=== PATIENT | female | born 1980 | race Caucasian/White ===

== ENCOUNTER 2024-08-10 12:12 | Emergency (ER) | payer OTHER ==
[~2024-08-10 12:12] MED LIST: Iopamidol 370 76% 100 ML VIAL ONE
[2024-08-10 13:34] LABS: #Basophils 0.03 10x3/uL (0.0-0.2); #Monocytes 0.44 10x3/uL (0.0-1.1); #Neutrophils 4.53 10x3/uL (1.5-8.4); %Basophils 0.3 % (0.0-2.0); %Eosinophils 2.3 % (0.0-6.0); %Lymphocytes 39.5 % (18.0-47.0); %Monocytes 5.1 % (0.0-10.0); %Neutrophils 52.7 % (40.0-75.0); Hematocrit 39.2 % (34.9-44.5); Hemoglobin 13.2 g/dL (12.0-15.5); Mean Corpuscular HGB CONC 33.7 g/dL (32.0-36.0); Mean Corpuscular Hemoglobin 31.1 pg (27.0-33.0); Mean Corpuscular Volume 92.2 fL (81.6-98.3); Platelet Count 238 10x3/uL (150-450); RBC Distribution Width 13.2 % (11.5-14.5); Red Blood Cell (RBC) Count 4.25 10x6/uL (3.90-5.03); White Blood Cell (WBC) Count 8.61 10x3/uL (3.5-10.5)
[2024-08-10 13:47] LABS: PTT 22.4 sec (22.0-33.0); Prothrombin Time 10.7 sec (9.5-12.1)
[2024-08-10 13:51] LABS: ALT (SGPT) 37 U/L (Less than 34); AST (SGOT) 34 U/L (11-34); Albumin 3.4 g/dL (3.1-4.5); Alkaline Phosphatase 78 U/L (40-110); Anion Gap 15 mmol/L (10-20); BUN (Urea Nitrogen) 9 mg/dL (7.0-18.7); Bilirubin, Total 0.3 mg/dL (0.3-1.2); Calc. Creatinine Clearance 0 mL/min (70-130); Calcium 8.7 mg/dL (7.8-10.44); Carbon Dioxide 21 mmol/L (22-29); Chloride 102 mmol/L (98-107); Estimated GFR 113; Potassium 3.6 mmol/L (3.5-5.1); Protein, Total 6.4 g/dL (6.0-8.3); Sodium 134 mmol/L (136-145)
[2024-08-10 14:12] LABS: Glucose 621 mg/dL (70-105)
[2024-08-10] MEDS ORDERED: diphenhydrAMINE 50 MG/ML VIAL ONE (14:19)
[2024-08-10] MEDS ORDERED: Acetaminophen 325 MG TAB ONE (14:20)
[2024-08-10] MEDS ORDERED: Metoclopramide HCl 10 MG (2 mL) VIAL ONE (14:20)
[2024-08-10] MEDS ORDERED: Insulin Lispro 100 UNIT/ML 10 ML VIAL SC SCH (15:15)
== END 2024-08-10 16:36 | disposition home or self-care (01) ==
LOC: CSHERS 12:12
DX: E11.65 Type 2 diabetes mellitus with hyperglycemia (principal); R51.9 Headache, unspecified; R20.2 Paresthesia of skin; R29.700 NIHSS score 0; I10 Essential (primary) hypertension; F17.210 Nicotine dependence, cigarettes, uncomplicated
CPT/HCPCS: 36415; 36416; 70496; 70498; 71045; 80053; 82010; 85025; 85610; 85730; 87428; 96374; 96375; J1200; J1815; J2765; Q9967